=== PATIENT | male | born 1985 | race Caucasian/White ===

== ENCOUNTER → 2024-09-01 11:37 | Outpatient (BNVA) | payer MEDICAID, SELFPAY | PROVIDERS: Referring Provider Family Medicine; Visit Provider Psychiatry & Neurology Neurology | DX: G40.909 Epilepsy, unspecified, not intractable, without status epilepticus (principal) | CPT/HCPCS: 36415; 80053; 82306; 82607; 82746; 83090; 83735; 83921; 84439; 84443; 84481; 85025; 86617 ==

== ENCOUNTER 2024-09-29 10:41 | Outpatient (CLI) | payer MEDICAID, SELFPAY ==
--- NOTE | 2024-09-29 11:00 | MR_ITS ---
WS: [id number] MRI HEAD WITH CONTRAST TECHNIQUE: Sagittal T1, T2 axial, T2 axial FLAIR, axial susceptibility weighted imaging, axial diffus ion weighted images, and coronal T2 images were obtained. Pre and post-T1 axial and post T1 coronal i mages. ADC and FSPGR images. CLINICAL INFORMATION: G40.909 - Epilepsy, unspecified, not intractable, without... COMPARISON: None. FINDINGS: No evidence of restricted diffusion to suggest acute ischemia. Ventricular system and basal cisterns are patent. A few incidental tiny foci of T2 hyperintensity in the subcortical white matter of doubtf ul clinical significance. Normal posterior fossa. Normal vascular flow voids at the skull base. No ex tra-axial fluid collections. No evidence of mass or mass effect. Mild mucosal thickening in the paran hudson sinuses. Normal posterior nasopharynx. Mastoid air cells are well aerated. Temporal lobes and hippocampal formations are normal in appearance. No signal abnormalities in the me sial temporal lobes. No evidence of mesial temporal sclerosis. No hemosiderin on the susceptibly weighted imaging. No abnormal gadolinium enhancement. No other susp icious findings. MR/MR head wo/w con [id number] IMPRESSION: 1. No evidence of restricted diffusion to suggest acute ischemia. 2. Normal green-white differentiation. No suspicious intracranial signal normal ities. 3. Temporal lobes and hippocampal formations are normal in appearance. No evid ence of mesial temporal sclerosis. 4. No hemosiderin on the susceptibly weighted images. 5. No abnormal gadolinium enhancement.
[2024-09-29] MEDS: gadobenate dimeglumine 20 mL vial 16 ML IV (11:30)
== END 2024-09-29 10:42 | disposition home or self-care (01) ==
LOC: RAD 10:43
PROVIDERS: PCP Family Medicine; Visit Provider Psychiatry & Neurology Neurology
DX: G40.909 Epilepsy, unspecified, not intractable, without status epilepticus (principal)
CPT/HCPCS: 70553